=== PATIENT | female | born 1990 | race Caucasian/White ===

== ENCOUNTER 2018-10-25 08:11 | Emergency (ER) | payer BC ==
[2018-10-25 09:36] LABS: ABS Basophils 0 10^3/ul (0-0.2); ABS Eosinophils 0 10^3/ul (0-0.6); ABS Lymphocytes 1.7 10^3/ul (1.0-4.8); ABS Monocytes 0.5 10^3/ul (0-0.8); ABS Neutrophils 2.9 10^3/ul (1.5-7.7); ABS Nucleated RBC 0 10^3/ul; Eosinophil % 0.5 %; Hematocrit 42 % (35-47); Hemoglobin 14.2 g/dl (12.0-16.0); Lymphocyte % 33.8 %; Mean Corpuscular HGB Conc 34 g/dl (31-36); Mean Corpuscular Hemoglobin 30 pg (27-31); Mean Corpuscular Volume 90 fL (80-97); Mean Platelet Volume 9.7 fL (7.4-10.4); Nucleated Red Blood Cells % 0.1; Platelet Count 186 10^3/ul (150-450); Red Blood Count 4.69 10^6/ul (4.00-5.40); Red Cell Distribution Width 12 % (10.5-15); White Blood Count 5.2 10^3/ul (3.5-10.8)
[2018-10-25 09:46] LABS: Activated Partial Thrombo Time 26.7 seconds (26.0-36.3); INR 0.93 (0.77-1.02)
[2018-10-25 09:49] LABS: Urine Appearance Clear; Urine Bilirubin Negative (Negative); Urine Blood Negative (Negative); Urine Color Straw; Urine Glucose Negative (Negative); Urine Ketones Negative (Negative); Urine Nitrite Negative (Negative); Urine Protein Negative (Negative); Urine Specific Gravity 1.003 (1.010-1.030); Urine Urobilinogen Negative (Negative)
[2018-10-25 09:54] LABS: ALT 23 U/L (7-52); AST 24 U/L (13-39); Albumin 4.5 g/dL (3.2-5.2); Albumin/Globulin Ratio 1.9 (1-3); Alkaline Phosphatase 45 U/L (34-104); Anion Gap 5 mmol/L (2-11); BUN/Creatinine Ratio 15.9 (8-20); Blood Urea Nitrogen 11 mg/dL (6-24); C Reactive Protein < 1.00 mg/L (<8.01); CO2 Carbon Dioxide 27 mmol/L (22-32); Calcium 9.6 mg/dL (8.6-10.3); Chloride 107 mmol/L (101-111); EGFR Non-African American 102.1 (>60); Globulin 2.4 g/dL (2-4); Glucose 95 mg/dL (70-100); Magnesium 1.8 mg/dL (1.9-2.7); Potassium 3.9 mmol/L (3.5-5.0); Sodium 139 mmol/L (135-145); Total Protein 6.9 g/dL (6.4-8.9)
[2018-10-25 10:00] LABS: HCG Pregnancy < 0.60 mIU/mL
[2018-10-25 10:14] LABS: TSH (Thyroid Stimulating Horm) 0.92 mcIU/mL (0.34-5.60)
[2018-10-25] MEDS ORDERED: NS 0.9% 1000 ML* 1,000 ML IV ONE (11:00)
--- NOTE | 2018-10-25 11:10 | ED ---
Complex/Multi-Sys Presentation - HPI Summary HPI Summary: Patient presents with acute on chronic vertigo. She reports she was driving to work this morning when she developed vertigo. Had difficulty driving staying straight on the road. She denies headache, numbness, tingling, weakness, chest pain or shortness of breath. She has a movement disorder and follows with neurology. They have evaluated her vertigo in the past as well. She is been prescribed meclizine to take as needed however she reports this is not typically help her dizziness. She denies recent head injury or illness however she has had chronic allergy symptoms and started a nasal spray 3 weeks ago during her nose and throat doctor. She is not sure which she is using. She denies recent dehydration with nausea/vomiting/diarrhea however she does eat quite a bit of protein and practices power lifting. No acute injuries. Admits to Lt sided neck tension in SCM and TMJ - has tried massage w/o relief. She also recently tried a muscle relaxer in the evenings and reports feeling weird on the 3rd try - no relief of muscle tension. Furthermore she also reports a chronic history of bladder irritation. She has urinary frequency without burning. She's also had right-sided flank pain at times however does not have this today. She is been evaluated by her PCP and OB /PATTERN CHECKER who feels she may have interstitial cystitis. She reports she had vaginal swabs at that time and an ultrasound to assess for cysts and other structural pathology which is normal. No known h/o or w/u for kidney stones. LMP 2 weeks ago - midcycle with RLQ aching yesterday - worse w/ movement - better today. Denies vaginal irritation, abnormal d/c. 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 - Allergies/Home Medications Allergies/Adverse Reactions: Allergies Allergy/AdvReac Type Severity Reaction Status Date / Time cefaclor [From [facility]] Allergy Hives Verified 10/25/18 08:19 Home Medications: Home Medications carBAMazepine ER TAB(*) [Tegretol Xr TAB(*)] 200 mg PO DAILY 10/25/18 [History Confirmed 10/25/18] PMH/Surg Hx/FS Hx/Imm Hx Infectious Disease History: No Infectious Disease History: Denies: Traveled Outside the [place] in Last 30 Days - Social History Alcohol Use: Occasionally Substance Use Type: Reports: None Smoking Status (MU): Former Smoker Review of Systems Constitutional: Negative Negative: Fever, Chills, Fatigue Eyes: Negative ENT: Other - nasal congestion Cardiovascular: Negative Respiratory: Negative Gastrointestinal: Negative Positive: see HPI Musculoskeletal: Other - Lt neck tightness Skin: Negative Neurological: Other - vertigo Negative: Headache, Weakness, Paresthesia, Numbness, Syncope, Slurred Speech Psychological: Normal All Other Systems Reviewed And Are Negative: Yes Physical Exam Triage Information Reviewed: Yes Vital Signs On Initial Exam: Initial Vitals Temp Pulse Resp BP Pulse Ox 98.6 F 79 20 116/96 98 10/25/18 08:13 10/25/18 08:13 10/25/18 08:13 10/25/18 08:13 10/25/18 08:13 Vital Signs Reviewed: Yes Appearance: Positive: Well-Appearing, No Pain Distress, Well-Nourished Skin: Positive: Warm, Skin Color Reflects Adequate Perfusion, Dry - no lesions over face/scalp Head/Face: Positive: Normal Head/Face Inspection. Negative: TMJ Tenderness Eyes: Positive: Normal, EOMI, YANNA - no photophobia, Conjunctiva Clear ENT: Positive: Hearing grossly normal, Pharynx normal - mucosa moist - mild cobblestoning, Nasal congestion - mild but mucosa is erythematous and w/ scant mucous d/c, TMs normal, Uvula midline. Negative: Tonsillar swelling, Tonsillar exudate, Trismus, Muffled voice, Hoarse voice, Sinus tenderness Neck: Positive: Supple, No Lymphadenopathy, Tenderness @ - mild along Lt SCM Respiratory/Lung Sounds: Positive: Clear to Auscultation, Breath Sounds Present. Negative: Rales, Rhonchi, Wheezes Cardiovascular: Positive: Normal, RRR, S1, S2. Negative: Leg Edema Left, Leg Edema Right Abdomen Description: Positive: Nontender, No Organomegaly, Soft. Negative: CVA Tenderness (R), CVA Tenderness (L), Distended, Hernia @ Bowel Sounds: Positive: Present Pelvic Exam: Positive: External Exam Normal, Speculum Exam Normal, No Cerv. Motion Tender, No Masses, Discharge - clear mucous d/c, Other - Rt pelvic floor muscle hypertonic/cord-like and TTP - pt is not tensing during exam. Negative: Active Bleeding, Cervicitis, Tender Adnexa, Tender Uterus Musculoskeletal: Positive: Normal, Strength/ROM Intact Neurological: Positive: Normal, Sensory/Motor Intact, Alert, Oriented to Person Place, Time, CN Intact II-III, Reflexes Intact, Finger to Nose - no ataxia, Facial Symmetry, Speech Normal, Other - full visual field intact. Negative: Pronator Drift Present Psychiatric: Positive: Normal - concerned but calm, polite, pleasant and cooperative - Josue Coma Scale Best Eye Response: 4 - Spontaneous Best Motor Response: 6 - Obeys Commands Best Verbal Response: 5 - Oriented Coma Scale Total: 15 Diagnostics - Vital Signs Vital Signs Temp Pulse Resp BP Pulse Ox 10/25/18 10:58 95 110/79 10/25/18 10:38 64 108/63 100 10/25/18 10:08 65 110/69 100 10/25/18 10:00 65 100 10/25/18 09:44 95 110/79 100 10/25/18 09:42 67 114/77 100 10/25/18 09:40 65 123/71 100 10/25/18 09:02 61 117/69 100 10/25/18 09:00 62 100 10/25/18 08:32 68 132/81 100 10/25/18 08:31 56 100 10/25/18 08:13 98.6 F 79 20 116/96 98 - Laboratory Lab Results: Lab Results 10/25/18 10/25/18 10/25/18 Range/Units 09:20 09:20 09:20 WBC 5.2 (3.5-10.8) 10^3/ul RBC 4.69 (4.00-5.40) 10^6/ul Hgb 14.2 (12.0-16.0) g/dl Hct 42 (35-47) % MCV 90 (80-97) fL MCH 30 (27-31) pg MCHC 34 (31-36) g/dl RDW 12 (10.5-15) % Plt Count 186 (150-450) 10^3/ul MPV 9.7 (7.4-10.4) fL Neut % (Auto) 55.4 % Lymph % (Auto) 33.8 % Gladwin % (Auto) 9.7 % Eos % (Auto) 0.5 % Baso % (Auto) 0.6 % Absolute Neuts (auto) 2.9 (1.5-7.7) 10^3/ul Absolute Lymphs (auto) 1.7 (1.0-4.8) 10^3/ul Absolute Monos (auto) 0.5 (0-0.8) 10^3/ul Absolute Eos (auto) 0 (0-0.6) 10^3/ul Absolute Basos (auto) 0 (0-0.2) 10^3/ul Absolute Nucleated RBC 0 10^3/ul Nucleated RBC % 0.1 INR (Anticoag Therapy) 0.93 (0.77-1.02) APTT 26.7 (26.0-36.3) seconds Sodium 139 (135-145) mmol/L Potassium 3.9 (3.5-5.0) mmol/L Chloride 107 (101-111) mmol/L Carbon Dioxide 27 (22-32) mmol/L Anion Gap 5 (2-11) mmol/L BUN 11 (6-24) mg/dL Creatinine 0.69 (0.51-0.95) mg/dL Est GFR ( Amer) 123.5 (>60) Est GFR (Non-Af Amer) 102.1 (>60) BUN/Creatinine Ratio 15.9 (8-20) Glucose 95 (70-100) mg/dL Lactic Acid (0.5-2.0) mmol/L Calcium 9.6 (8.6-10.3) mg/dL Magnesium 1.8 L (1.9-2.7) mg/dL Total Bilirubin 0.60 (0.2-1.0) mg/dL AST 24 (13-39) U/L ALT 23 (7-52) U/L Alkaline Phosphatase 45 (34-104) U/L Troponin I 0.00 (<0.04) ng/mL C-Reactive Protein < 1.00 (<8.01) mg/L Total Protein 6.9 (6.4-8.9) g/dL Albumin 4.5 (3.2-5.2) g/dL Globulin 2.4 (2-4) g/dL Albumin/Globulin Ratio 1.9 (1-3) TSH 0.92 (0.34-5.60) mcIU/mL Beta HCG, Quant < 0.60 mIU/mL Urine Color Urine Appearance Urine pH (5-9) Ur Specific Hoffman (1.010-1.030) Urine Protein (Negative) Urine Ketones (Negative) Urine Blood (Negative) Urine Nitrate (Negative) Urine Bilirubin (Negative) Urine Urobilinogen (Negative) Ur Leukocyte Esterase (Negative) Urine Glucose (Negative) 10/25/18 10/25/18 Range/Units 09:20 09:42 WBC (3.5-10.8) 10^3/ul RBC (4.00-5.40) 10^6/ul Hgb (12.0-16.0) g/dl Hct (35-47) % MCV (80-97) fL MCH (27-31) pg MCHC (31-36) g/dl RDW (10.5-15) % Plt Count (150-450) 10^3/ul MPV (7.4-10.4) fL Neut % (Auto) % Lymph % (Auto) % Gladwin % (Auto) % Eos % (Auto) % Baso % (Auto) % Absolute Neuts (auto) (1.5-7.7) 10^3/ul Absolute Lymphs (auto) (1.0-4.8) 10^3/ul Absolute Monos (auto) (0-0.8) 10^3/ul Absolute Eos (auto) (0-0.6) 10^3/ul Absolute Basos (auto) (0-0.2) 10^3/ul Absolute Nucleated RBC 10^3/ul Nucleated RBC % INR (Anticoag Therapy) (0.77-1.02) APTT (26.0-36.3) seconds Sodium (135-145) mmol/L Potassium (3.5-5.0) mmol/L Chloride (101-111) mmol/L Carbon Dioxide (22-32) mmol/L Anion Gap (2-11) mmol/L BUN (6-24) mg/dL Creatinine (0.51-0.95) mg/dL Est GFR ( Amer) (>60) Est GFR (Non-Af Amer) (>60) BUN/Creatinine Ratio (8-20) Glucose (70-100) mg/dL Lactic Acid 0.6 (0.5-2.0) mmol/L Calcium (8.6-10.3) mg/dL Magnesium (1.9-2.7) mg/dL Total Bilirubin (0.2-1.0) mg/dL AST (13-39) U/L ALT (7-52) U/L Alkaline Phosphatase (34-104) U/L Troponin I (<0.04) ng/mL C-Reactive Protein (<8.01) mg/L Total Protein (6.4-8.9) g/dL Albumin (3.2-5.2) g/dL Globulin (2-4) g/dL Albumin/Globulin Ratio (1-3) TSH (0.34-5.60) mcIU/mL Beta HCG, Quant mIU/mL Urine Color Straw Urine Appearance Clear Urine pH 7.0 (5-9) Ur Specific Hoffman 1.003 L (1.010-1.030) Urine Protein Negative (Negative) Urine Ketones Negative (Negative) Urine Blood Negative (Negative) Urine Nitrate Negative (Negative) Urine Bilirubin Negative (Negative) Urine Urobilinogen Negative (Negative) Ur Leukocyte Esterase Negative (Negative) Urine Glucose Negative (Negative) Result Diagrams: 10/25/18 09:20 10/25/18 09:20 Lab Statement: Any lab studies that have been ordered have been reviewed, and results considered in the medical decision making process. Re-Evaluation - Re-Evaluation First Eval Change: Improved - was found to have increased heart rate w/ orthostatic BP check - given IVF and feeling better Complex Multi-Symp Course/Dx Course Of Treatment: Pt presents w/ multiple sx however that which is most concerning is her vertigo that presented abruptly this morning while driving. This has mostly resolved prior to arrival but still has some dizziness w/ transitioning from lying to sitting. IVF provided w/ increased HR w/ orthostatic BP - this improved sx. Other w/u completed today to r/o 2ndry causes such as infection, electrolyte imbalance, thyroid dysfunctyion, anemia, etc. KUB w/o nephrolithiasis however she is aware this is not definitive test for urinary tract stones. U/A clear. Labs, neuro exam and pelvic exam all normal except for findings of tight pelvic floor muscle on the Rt and tight SCM on Lt. Explained muscle tension nad imbalance, especially of the head and neck can trigger vertigo sx. She also reports using a nasal spray x 3 weeks w/ perisst upper resp congestion. Recommend calling neurologist today for outpt guidance but also discussed potential benefirs of seeking osteopathy care. Pt agrees to follow-up with both and will retunr to ED if danfetr s/sx present. - Diagnoses Provider Diagnoses: Vertigo, Orthostatic dizziness, Muscle hypertonicity Discharge - Sign-Out/Discharge Documenting (check all that apply): Patient Departure - Discharge Plan Condition: Stable Disposition: HOME Patient Education Materials: Dehydration (ED), Vertigo (ED), Musculoskeletal Pain (ED) Referrals: Shivani Olivier DO [Doctor of Osteopathy] - Additional Instructions: The definitive cause of your vertigo was not identified today however you were found to have dizziness with change in position and improved symptoms with IV fluids. This may indicate a level of dehydration. Make sure to drink plenty of hydration fluids (ie. water, mineral water, coconut water, soup/bone broth) throughout the day and avoid diuretics (ie. caffeine, lemon water, cranberry juice, alcohol, etc) to prevent recurrence. You also mentioned taking a muscle relaxer and using a nasal spray, one or both of which may also be contributing to these symptoms. Refrain from using muscle relaxer. Follow-up with ENT regarding nasal spray - may be able to substitute for saline wash or spray as needed for congestion. It is also important that you follow-up with your neurologist to make them aware of your recent symptoms. Schedule an appointment as necessary. Furthermore, we identified that you have chronic Left sided neck tension along with intermittent TMJ. This may be contributing/causing vertigo symptoms as well. You have been provided with the contact information for a local osteopathic physician who provides osteopathic manipulative medicine. Call today to schedule an appointment in the next 1-2 weeks. In regards to your pelvic symptoms, you may relay these to the osteopathic provider as pelvic floor tension was identified today. If not relief with treatment, follow-up with your PCP/OB for further assessment of suspected interstitial cystitis. *IF YOU FEEL WORSE, RETURN TO ED - Billing Disposition and Condition Condition: STABLE Disposition: Home
[2018-10-25 13:54] VITALS: BP 105/73
== END 2018-10-25 13:53 | disposition home or self-care (01) ==
LOC: ED 08:11
DX: R42 Dizziness and giddiness (principal); M62.838 Other muscle spasm; Z87.891 Personal history of nicotine dependence
CPT/HCPCS: 36415; 74018; 80053; 81003; 83605; 83735; 84443; 84484; 84702; 85025; 85610; 85730; 86140; 86618; 87480; 87491; 87510; 87591; 87661; 93005; 96360; 99282